=== PATIENT | male | born 1980 | race Caucasian/White ===

== ENCOUNTER 2017-06-07 15:41 | Emergency (ER) | payer OTHER ==
[~2017-06-07] VITALS: Ht 162.6 cm; Wt 61.2 kg
[2017-06-07] MEDS ORDERED: TDAP [DIPH/PERTUSSIS/TET] 0.5 ML VIAL IM ONE ×2 (16:00→16:05)
[2017-06-07] MEDS ORDERED: LIDOCAINE 1% INJ 50 ML MDV IJ ONE (16:00)
[2017-06-07 17:14] VITALS: BP 134/77
== END 2017-06-07 17:15 ==
LOC: ER 15:49
DX: S01.01XA Laceration without foreign body of scalp, initial encounter (principal); H57.8 Other specified disorders of eye and adnexa; Y04.2XXA Assault by strike against or bumped into by another person, initial encounter; Y93.89 Activity, other specified; Y92.89 Other specified places as the place of occurrence of the external cause; Y99.8 Other external cause status
CPT/HCPCS: 12001; 70450; 90471; 90715; 99284; A4606; A6402; Z7610

== ENCOUNTER 2017-06-07 20:00 | Emergency (ER) | payer OTHER ==
[~2017-06-07] VITALS: Ht 165.1 cm; Wt 65.3 kg
[2017-06-07 20:07] VITALS: BP 130/75
== END 2017-06-07 20:24 ==
LOC: ER 20:01
DX: S09.90XA Unspecified injury of head, initial encounter (principal); W22.8XXA Striking against or struck by other objects, initial encounter; Y93.89 Activity, other specified; Y92.89 Other specified places as the place of occurrence of the external cause; Y99.8 Other external cause status
CPT/HCPCS: 99283; A4606; Z7610